=== PATIENT | female | born 1965 ===

== ENCOUNTER 2018-01-05 16:21 | Emergency (ER) | payer SELFPAY ==
[2018-01-05 16:35] VITALS: RESP 18; O2SAT 100
[2018-01-05] MEDS ORDERED: Sodium Chloride 0.9% 1,000 ML IV STA (16:59)
--- NOTE | 2018-01-05 17:02 | ED PDOC ---
HPI: Abdomen Time Seen by Provider: 01/05/18 16:46 Chief Complaint (Nursing): Abdominal Pain Chief Complaint (Provider): abdominal pain and diarrhea History Per: Patient History/Exam Limitations: no limitations Onset/Duration Of Symptoms: Days (x9 ) Current Symptoms Are (Timing): Still Present Location Of Pain/Discomfort: Diffuse Quality Of Discomfort: Cramping Associated Symptoms: Diarrhea (non bloody). denies: Fever, Chills, Nausea, Vomiting, Back Pain, Urinary Symptoms Last Bowel Movement: Today (14:30) Additional Complaint(s): Chaim Dutta is a 52 year old female, with no significant past medical history , who presents to the emergency department complaining of a diffused crampy abdominal pain associated with non bloody diarrhea onset for x9 days. Patient states pain is constant and reports a loss of appetite since onset. She did not take anything for the pain. Last bowel movement was today at 14:30. She denies any fever, chills, cough, congestion, nausea, vomit, urinary symptoms, shortness of breath, chest pain, headache, dizziness, weakness, numbness or tingling. No further medical complaints. PMD: Dyan Thrasher Past Medical History Reviewed: Historical Data, Nursing Documentation, Vital Signs Vital Signs: Last Vital Signs Temp 97.8 F 01/05/18 16:33 Pulse 73 01/05/18 16:33 Resp 18 01/05/18 16:33 BP 105/62 01/05/18 16:33 Pulse Ox 100 01/05/18 17:08 - Medical History PMH: No Chronic Diseases - Surgical History Surgical History: No Surg Hx - Family History Family History: States: Unknown Family Hx - Social History Current smoker - smoking cessation education provided: No Alcohol: None Drugs: Denies - Home Medications Home Medications: Ambulatory Orders Medication Instructions Recorded Dicyclomine [Dicyclomine HCl] 10 mg PO DAILY PRN 5 Days cap 01/05/18 - Allergies Allergies/Adverse Reactions: Allergies Allergy/AdvReac Type Severity Reaction Status Date / Time No Known Allergies Allergy Verified 01/05/18 16:32 Review of Systems ROS Statement: Except As Marked, All Systems Reviewed And Found Negative Constitutional: Negative for: Fever, Chills ENT: Negative for: Nose Congestion Cardiovascular: Negative for: Chest Pain Respiratory: Negative for: Cough, Shortness of Breath Gastrointestinal: Positive for: Abdominal Pain, Diarrhea (non bloody). Negative for: Nausea, Vomiting Genitourinary Female: Negative for: Dysuria, Frequency Musculoskeletal: Negative for: Back Pain Neurological: Negative for: Weakness, Numbness (tingling), Headache, Dizziness Physical Exam - Reviewed Nursing Documentation Reviewed: Yes Vital Signs Reviewed: Yes - Physical Exam Appears: Positive for: Non-toxic, No Acute Distress Head Exam: Positive for: ATRAUMATIC, NORMOCEPHALIC Skin: Positive for: Normal Color, Warm, Dry Eye Exam: Positive for: Normal appearance, EOMI, PERRL Neck: Positive for: Painless ROM, Supple Cardiovascular/Chest: Positive for: Regular Rate, Rhythm. Negative for: Murmur Respiratory: Positive for: Normal Breath Sounds. Negative for: Respiratory Distress Gastrointestinal/Abdominal: Positive for: Tenderness (mild diffused tenderness) Back: Positive for: Normal Inspection. Negative for: L CVA Tenderness, R CVA Tenderness, Vertebral Tenderness Extremity: Positive for: Normal ROM (upper and lower extremities). Negative for : Deformity, Swelling Neurologic/Psych: Positive for: Alert, Oriented. Negative for: Motor/Sensory Deficits - Laboratory Results Result Diagrams: 01/05/18 17:10 01/05/18 17:10 Interpretation Of Abn Labs: no acute - ECG O2 Sat by Pulse Oximetry: 100 (RA) Pulse Ox Interpretation: Normal - Progress ED Course And Treament: 1827: Stable. AAOx3. Pain free. Tolerated PO. FU with pcp. Medical Decision Making Medical Decision Making: Time: 16:46 Initial Impression: abdominal pain Initial Plan: --CMP --Urine dip --Urine --CBC w/ differential --Bentyl 10 mg PO --Pepcid 20 mg IVP --Sodium Chloride 1,000 ml IV 1000 mls/hr --Reevaluation Scribe Attestation: Documented by Oracio Telles acting as a scribe for Galindo Montanez MD. Scribe Attestation: All medical record entries made by the Scribe were at my direction and personally dictated by me. I have reviewed the chart and agree that the record accurately reflects my personal performance of the history, physical exam, medical decision making, and the department course for this patient. I have also personally directed, reviewed, and agree with the discharge instructions and disposition. Disposition - Clinical Impression Clinical Impression: Abdominal pain, Diarrhea - Patient ED Disposition Is Patient to be Admitted: No Counseled Patient/Family Regarding: Studies Performed, Diagnosis, Need For Followup, Rx Given - Disposition Referrals: [facility] [Outside] - 01/06/18 Disposition: Routine/Home Disposition Time: 18:30 Condition: STABLE Additional Instructions: Return if not better in 3 days. Prescriptions: Dicyclomine [Dicyclomine HCl] 10 mg PO DAILY PRN 5 Days cap PRN Reason: Diarrhea Instructions: Diarrhea in Adolescents and Adults, Stomach Ache and Stomach Upset
[2018-01-05] MEDS ORDERED: Famotidine 20mg/50ml 20 MG/50 ML BAG IVPB ONE ×2 (17:05→17:17)
[2018-01-05 17:32] LABS: BASO % 0.6 % (0.0-2.0); EOS # 0.1 K/uL (0.0-0.7); EOS % 1.4 % (0.0-4.0); HEMOGLOBIN 11.9 g/dL (12.0-16.0); LYMPH # 2.6 K/uL (1.0-4.3); LYMPH % 40.8 % (20.0-40.0); MEAN CORPUSCULAR HEMOGLOBIN 27.2 pg (27.0-31.0); MEAN CORPUSCULAR HGB CONC 32.7 g/dL (33.0-37.0); MEAN PLATELET VOLUME 7.7 fl (7.2-11.7); MONO # 0.5 K/uL (0.0-0.8); NEUT # 3.2 K/uL (1.8-7.0); NEUT % 49.2 % (50.0-75.0); RBC 4.38 Mil/uL (3.80-5.20); RED CELL DISTRIBUTION WIDTH 14.2 % (11.5-14.5); WHITE BLOOD COUNT 6.4 K/uL (4.8-10.8)
[2018-01-05 17:42] LABS: CALCIUM 8.9 mg/dL (8.4-10.2); GFR AFRICAN-AMERICAN > 60; GFR NON-AFRICAN AMERICAN > 60
[2018-01-05 17:45] LABS: ALB/GLOB RATIO 1.3 (1.0-2.1); ALBUMIN 4.4 g/dL (3.5-5.0); ALT/SGPT 32 U/L (9-52); AST/SGOT 42 U/L (14-36); BLOOD UREA NITROGEN 17 mg/dl (7-17)
[2018-01-06 03:05] VITALS: BP 122/70; PULSE 80; TEMP 98.3
== END 2018-01-05 19:30 | disposition home or self-care (01) ==
LOC: H.ER 16:21
DX: R10.9 Unspecified abdominal pain (principal); R19.7 Diarrhea, unspecified
CPT/HCPCS: 80053; 81025; 85025; 96361; 96374; 99284; J7030

== ENCOUNTER 2018-02-22 06:09 | Emergency (ER) | payer SELFPAY ==
[2018-02-22 06:22] VITALS: O2SAT 98
[2018-02-22] MEDS ORDERED: Dexamethasone 10 MG in Sodium Chloride 0.9% 50 ML IV ONE (06:32)
[2018-02-22] MEDS ORDERED: Sodium Chloride 0.9% 1,000 ML IV STA (06:33)
--- NOTE | 2018-02-22 06:38 | ED PDOC ---
HPI: General Adult Time Seen by Provider: 02/22/18 06:26 Chief Complaint (Nursing): Flu-like Symptoms Chief Complaint (Provider): Flu-like Symptoms History Per: Patient History/Exam Limitations: no limitations Onset/Duration Of Symptoms: Days (x1) Current Symptoms Are (Timing): Still Present Additional Complaint(s): 52 y/o female with a PMHx of migraines presents to the ED complaining of sore throat and facial pain since yesterday. Patient states it is hard to swallow due to pain and also complains of pain in the bones in her face. Patient reports of subjective fevers but did not check temperature. Patient states fever is associated with chills and cold sweats. Denies recent travel, sick contacts, shortness of breath, rhinorrhea, nausea, vomiting, diarrhea and abdominal pain. PMD: None Provided Past Medical History Reviewed: Historical Data, Nursing Documentation, Vital Signs Vital Signs: Last Vital Signs Temp 99.2 F 02/22/18 09:52 Pulse 80 02/22/18 09:52 Resp 18 02/22/18 09:52 BP 106/90 02/22/18 09:52 Pulse Ox 98 02/22/18 09:52 - Medical History PMH: Migraine - Surgical History Surgical History: No Surg Hx - Family History Family History: States: Unknown Family Hx - Home Medications Home Medications: Ambulatory Orders Medication Instructions Recorded Acetaminophen [Tylenol] 650 mg PO 02/22/18 Guaifenesin/Pseudoephedrne HCl 1 ter PO Q12H PRN #10 ter 02/22/18 [Mucinex D 600 mg-60 mg] Ketorolac Tromethamine [Toradol] 10 mg PO Q6H PRN #19 tab 02/22/18 - Allergies Allergies/Adverse Reactions: Allergies Allergy/AdvReac Type Severity Reaction Status Date / Time No Known Allergies Allergy Verified 01/05/18 16:32 Review of Systems ROS Statement: Except As Marked, All Systems Reviewed And Found Negative Constitutional: Positive for: Fever (subjective), Chills, Sweats (cold), Other ( Facial pain) ENT: Positive for: Throat Pain. Negative for: Nose Discharge Respiratory: Negative for: Shortness of Breath Gastrointestinal: Negative for: Nausea, Vomiting, Abdominal Pain, Diarrhea Physical Exam - Reviewed Nursing Documentation Reviewed: Yes Vital Signs Reviewed: Yes - Physical Exam Appears: Positive for: Non-toxic, No Acute Distress Head Exam: Positive for: ATRAUMATIC, NORMAL INSPECTION (Tenderness to the maxillary sinuses), NORMOCEPHALIC Skin: Positive for: Normal Color, Warm, Dry Eye Exam: Positive for: Normal appearance, EOMI, PERRL ENT: Positive for: Normal ENT Inspection Neck: Positive for: Normal, Painless ROM Cardiovascular/Chest: Positive for: Regular Rate, Rhythm. Negative for: Murmur Respiratory: Positive for: Normal Breath Sounds. Negative for: Respiratory Distress Gastrointestinal/Abdominal: Positive for: Normal Exam, Soft. Negative for: Tenderness Back: Positive for: Normal Inspection. Negative for: L CVA Tenderness, R CVA Tenderness Extremity: Positive for: Normal ROM. Negative for: Pedal Edema, Deformity Neurologic/Psych: Positive for: Alert, Oriented. Negative for: Motor/Sensory Deficits - Laboratory Results Result Diagrams: 02/22/18 06:50 02/22/18 06:50 - ECG O2 Sat by Pulse Oximetry: 98 (RA) Pulse Ox Interpretation: Normal Medical Decision Making Medical Decision Making: Time: 0640 A/P: 52 y/o female with a PMHx of migraines presenting with sore throat and facial pain -- Patient with a low grade temperature and tachycardia otherwise comfortable appearing -- Patient likely suffering from viral infection Plan: -- BMP -- CBC with Differentials -- CXR One View -- Decadron Inj 10 mg Sodium Chloride 0.9% 50 ml IV -- Sodium Chloride IV 1000 mls/hr -- Toradol 30 mg IVP -- Rapid Strep Group A Antigen Time: 0700 -- Patient endorsed to Dr. Douglas, pending ED workup, re-assessment and final ER disposition. Scribe Attestation: Documented by Jose De Jesus Mac acting as a scribe for Dr. Laureano Reid MD. Provider Scribe Attestation: All medical record entries made by the Scribe were at my direction and personally dictated by me. I have reviewed the chart and agree that the record accurately reflects my personal performance of the history, physical exam, medical decision making, and the department course for this patient. I have also personally directed, reviewed, and agree with the discharge instructions and disposition. Disposition - Clinical Impression Clinical Impression: Sinus headache - Disposition Referrals: [facility] [Outside] [facility] [Outside] [facility] [Outside] Disposition: Transfer of Care Disposition Time: 07:00 Condition: STABLE Prescriptions: Guaifenesin/Pseudoephedrne HCl [Mucinex D 600 mg-60 mg] 1 ter PO Q12H PRN #10 ter PRN Reason: cough/congestion Ketorolac Tromethamine [Toradol] 10 mg PO Q6H PRN #19 tab PRN Reason: Pain, Moderate (4-7) Instructions: Headache, Adult (DC) Forms: [employer] (Austrian) Print Language: DANISH Patient Signed Over To: Fiordaliza Douglas Handoff Comments: pending workup and re-eval
--- NOTE | 2018-02-22 07:10 | ED PDOC ---
- Laboratory Results Result Diagrams: 02/22/18 06:50 02/22/18 06:50 - ECG O2 Sat by Pulse Oximetry: 98 (RA) Pulse Ox Interpretation: Normal - Progress Re-evaluation Time: 09:27 Condition: Improved Medical Decision Making Medical Decision Making: Time: 0700 Patient endorsed to me by Dr. Reid pending improvement of symptoms and reevaluation. Scribe Attestation: Documented by Cecelia Monreal, acting as a scribe for Fiordaliza Douglas MD Provider Scribe Attestation: All medical record entries made by the Scribe were at my direction and personally dictated by me. I have reviewed the chart and agree that the record accurately reflects my personal performance of the history, physical exam, medical decision making, and the department course for this patient. I have also personally directed, reviewed, and agree with the discharge instructions and disposition. Disposition Doctor Will See Patient In The: Office Counseled Patient/Family Regarding: Diagnosis, Need For Followup, Rx Given - Clinical Impression Clinical Impression: Sinus headache - POA Present On Arrival: None - Disposition Referrals: [facility] [Outside] [facility] [Outside] [facility] [Outside] Disposition: Routine/Home Disposition Time: 09:00 Prescriptions: Guaifenesin/Pseudoephedrne HCl [Mucinex D 600 mg-60 mg] 1 ter PO Q12H PRN #10 ter PRN Reason: cough/congestion Ketorolac Tromethamine [Toradol] 10 mg PO Q6H PRN #19 tab PRN Reason: Pain, Moderate (4-7) Instructions: Headache, Adult (DC) Forms: [employer] (Korean) Print Language: FAROESE
[2018-02-22 07:19] LABS: BASO % 0.5 % (0.0-2.0); EOS % 0.4 % (0.0-4.0); HEMOGLOBIN 13.2 g/dL (12.0-16.0); LYMPH # 1.5 K/uL (1.0-4.3); LYMPH % 15.4 % (20.0-40.0); MEAN CELL VOLUME 82.6 fl (81.0-99.0); MEAN CORPUSCULAR HEMOGLOBIN 27.5 pg (27.0-31.0); MEAN CORPUSCULAR HGB CONC 33.3 g/dL (33.0-37.0); MONO # 0.7 K/uL (0.0-0.8); MONO % 7.5 % (0.0-10.0); NEUT # 7.3 K/uL (1.8-7.0); NEUT % 76.2 % (50.0-75.0); RBC 4.79 Mil/uL (3.80-5.20); RED CELL DISTRIBUTION WIDTH 14.9 % (11.5-14.5); WHITE BLOOD COUNT 9.6 K/uL (4.8-10.8)
[2018-02-22 07:35] LABS: BLOOD UREA NITROGEN 12 mg/dl (7-17); CALCIUM 9.2 mg/dL (8.4-10.2); GFR AFRICAN-AMERICAN > 60; GFR NON-AFRICAN AMERICAN > 60
[2018-02-22 07:46] VITALS: RESP 18; TEMP 99.2
--- NOTE | 2018-02-22 08:01 | RAD ---
Date of service: 02/22/2018 HISTORY: fever, cough COMPARISON: No prior. TECHNIQUE: Chest PA and lateral FINDINGS: LUNGS: No active pulmonary disease. PLEURA: No significant pleural effusion identified. No pneumothorax apparent. CARDIOVASCULAR: Normal. OSSEOUS STRUCTURES: No significant abnormalities. VISUALIZED UPPER ABDOMEN: Normal. OTHER FINDINGS: None. IMPRESSION: No active disease.
[2018-02-22 09:53] VITALS: BP 106/90; PULSE 80
== END 2018-02-22 09:54 | disposition home or self-care (01) ==
LOC: H.ER 06:09
DX: R51 Headache (principal); R50.9 Fever, unspecified
CPT/HCPCS: 71046; 80048; 85025; 87070; 87430; 96374; 99284; J1100; J1885; J7030